=== PATIENT | female | born 2000 ===

== ENCOUNTER 2024-05-22 07:37 | Emergency (ER) | payer SELFPAY ==
[2024-05-22] VITALS (7 sets, daily range): BP systolic 107–140; BP diastolic 69–90; BMI 25.6
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
[2024-05-22 08:26] LABS: % Basophils 1.2 % (0-2); % Eosinophils 3.2 % (0-6); % Immature Granulocytes 0.7 % (0-0.5); % Lymphocytes 20.8 % (20.5-51.1); % Monocytes 6.9 % (1.7-9.3); % Neutrophils 67.2 % (42.2-75.2); Absolute Basophils 0.1 10^3/uL (0-0.2); Absolute Eosinophils 0.2 10^3/uL (0-0.7); Absolute Immature Granulocytes 0.1 10^3/uL (0-0.05); Absolute Lymphocytes 1.4 10^3/uL (1.2-3.4); Absolute Monocytes 0.5 10^3/uL (0.1-0.6); Absolute Neutrophils 4.6 10^3/uL (1.4-6.5); Hematocrit 37.8 % (37.0-47.0); Hemoglobin 11.9 g/dL (12.0-16.0); Mean Corp Hgb Conc. 31.5 g/dL (33.0-37.0); Mean Corpuscular Hgb 19.8 pg (27.0-31.0); Mean Corpuscular Volume 62.8 fL (81.0-99.0); Mean Platelet Volume 9.3 fL (7.4-10.4); Nucleated Red Blood Cells % 0 %; Platelet Count 342 10^3/uL (130-400); Red Blood Cell Count 6.02 10^6/uL (4.20-5.40); Red Cell Dist. Width 14.9 % (11.5-14.5); White Blood Cell Count 6.8 10^3/uL (4.8-10.8)
[2024-05-22 08:39] LABS: HCG, Serum Qualitative Screen Positive
[2024-05-22 08:40] LABS: ALT (SGPT) 23 U/L (0-35); AST (SGOT) 27 U/L (14-36); Albumin 4.4 g/dl (3.5-5.0); Alkaline Phosphatase 72 U/L (38-126); Blood Urea Nitrogen 12 mg/dl (7-17); Carbon Dioxide 24 mmol/L (22-30); Chloride 108 mmol/L (98-107); Estimated Creatinine Clearance 110 ml/min; Glucose 103 mg/dl (70-99); Sodium 141 mmol/L (135-145); Total Bilirubin 0.7 mg/dl (0.2-1.3); Total Protein 7.3 g/dl (6.3-8.2); eGFR > 60.00
[2024-05-22] MEDS: TYLENOL 650 MG PO (08:52)
[2024-05-22] MEDS: TORADOL 15 MG IV (08:53)
[2024-05-22 09:21] LABS: Beta HCG Quantitative < 2.39 mIU/ml
[2024-05-22 09:46] LABS: Iron 104 ug/dl (37-170)
[2024-05-22 09:55] LABS: Percent Saturation 41 % (20-50); Total Iron Binding Capacity 249 ug/dl (265-497)
[2024-05-22 11:10] LABS: Troponin I < 0.012 ng/ml
== END 2024-05-22 12:08 | disposition home or self-care (01) ==
LOC: EMR 07:37
PROVIDERS: EMERGENCY PHYSICIAN Emergency Medicine
DX: S22.20XA Unspecified fracture of sternum, initial encounter for closed fracture (principal); D64.9 Anemia, unspecified; R03.0 Elevated blood-pressure reading, without diagnosis of hypertension; V43.52XA Car driver injured in collision with other type car in traffic accident, initial encounter
CPT/HCPCS: 99285; 96374; 71260; 80053; 82728; 83540; 83550; 84484; 84702; 84703; 85025; 93005; Q9967